=== PATIENT | female | born 1965 | race Caucasian/White ===

== ENCOUNTER → 2017-02-09 | Outpatient (CLI) | payer OTHER ==
--- NOTE | 2017-02-09 11:32 | REP ---
MRI LUMBAR SPINE WITHOUT CONTRAST FOLLOWED BY WITH CONTRAST: HISTORY: Lumbar spondylosis. Low back pain radiating to both lower extremities. TECHNIQUE: Sagittal and axial T1 and T2-weighted scans are acquired in the usual fashion with and without fat saturation. Sequences include spin echo, turbo spin-echo, and STIR imaging sequences. 20 mL of intravenous ProHance is administered. MRI FINDINGS: There is a hemangioma in the L2 vertebral body measuring 2.1 cm in greatest diameter. Cortical and medullary bone signal intensity are otherwise normal. There is some straightening of the normal lumbar lordosis. Lumbar vertebral body heights are preserved. Conus medullaris is normal in position and appearance at T12. No extra vertebral abnormality is observed. Normal caliber aorta. There are degenerative disc changes at L3-4, L4-5, and L5 S1 with disc space narrowing and decreased disc space signal intensity. Axial and sagittal images at L3-4 demonstrate minimal diffuse disc bulging. No central canal stenosis or disc herniation is seen. No neural foraminal encroachment is appreciated. At L4-L5, there is diffuse moderate disc bulging. Canal size is borderline. There is some facet hypertrophy and mild ligamentum flavum hypertrophy. The mid sagittal AP dimension of the thecal sac is 10 mm. No neural foraminal encroachment is seen. At L5-S1, there is facet hypertrophy bilaterally. Mild diffuse disc bulging is seen. There is mild left-sided neural foraminal encroachment due to disc bulging associated spurring and facet hypertrophy. No central canal stenosis is seen. Post-gadolinium enhanced images show no significant or abnormal gadolinium enhancement. There is some enhancement along the margin of the L4-5 disc bulging. IMPRESSION: Degenerative spondylosis changes L3-4, L4-5, L5-S1. Left-sided neural foraminal narrowing at L5-S1, mild central canal narrowing L4-5. Signed by Irving Diego MD 02/09/2017 01:12 P
== END ==
LOC: M PLARAD 07:33
PROVIDERS: ATTEND Physical Medicine & Rehabilitation
DX: M47.816 Spondylosis without myelopathy or radiculopathy, lumbar region (principal)

== ENCOUNTER → 2018-05-07 | Outpatient (CLI) | payer OTHER ==
--- NOTE | 2018-05-07 11:24 | REP ---
MR LUMBAR SPINE WITHOUT CONTRAST: HISTORY: Degenerative disc disease. CONTRAST: ProHance 20 mL. COMPARISON: 02/09/2017 Decreased signal intensity on T2-weighted images is present in the L3-4 through L5-S1 intervertebral discs. The discs are decreased in height. These findings are consistent with disc degeneration. There is no disc bulge or herniation at the L1-2 and L2-3 levels. The nerves exit the neural foramina without compression. A diffuse disc bulge is present at the L3-4 level. There is an increase in the amount of epidural fat. There is mild compression of the thecal sac. There is hypertrophy of the posterior articulating facets. The L3 nerves exit the neural foramina without compression. A diffuse disc bulge is present at the L4-5 level. There is an increase in the amount of epidural fat. There is hypertrophy of the ligamenta flava and posterior articulating facets. There is moderate compression of the thecal sac. The L4 nerves exit the neural foramina without compression. A diffuse disc bulge is present at the L5-S1 level. There is no thecal sac compression. There is hypertrophy of the posterior articulating facets. There is compression of the L5 nerves in the neural foramina. The conus medullaris is normal in appearance, terminating at the level of the T12-L1 intervertebral disc. A hemangioma is present in the L2 vertebral body. Increased signal intensity on T2-weighted images is present in the endplates of the L5 and S1 vertebral bodies. This represents degenerative change. IMPRESSION: 1. Diffuse disc bulge and epidural lipomatosis at the L3-4 level with mild thecal sac compression. 2. Moderate central canal stenosis at the L4-5 level secondary to disc bulge, ligamentous and facet hypertrophy and epidural lipomatosis. The canal stenosis is a new finding. 3. Diffuse disc bulge at the L5-S1 level without thecal sac compression. There is compression of the L5 nerves in the neural foramina. There is no other significant change. Electronically Signed by Real Clements MD 05/07/2018 11:31 A
== END ==
LOC: M PLARAD 07:34
PROVIDERS: ATTEND Physical Medicine & Rehabilitation
DX: M51.06 Intervertebral disc disorders with myelopathy, lumbar region (principal); M48.061 Spinal stenosis, lumbar region without neurogenic claudication; M51.27 Other intervertebral disc displacement, lumbosacral region

== ENCOUNTER 2023-10-02 23:07 | Inpatient (IN) | payer BC ==
[~2023-10-02] VITALS: Ht 175.3 cm; Wt 130.0 kg
[2023-10-03] MEDS: ONDANSETRON 4MG 2ML VIAL IV ONE (01:07)
[2023-10-03] MEDS: MORPHINE 4 MG/ML 1ML VIAL IV ONE ×2 (01:07→02:39)
[2023-10-03 01:08] LABS: BASO # 0.1 10^3/uL (0.0-0.2); BASO % 0.7 % (0.0-1.0); EOS # 0.1 10^3/uL (0.0-0.5); HEMATOCRIT 32.8 % (36.0-47.0); HEMOGLOBIN 11.2 g/dl (12.0-15.5); LYMPH # 2.8 10^3/uL (1.5-5.0); LYMPH % 32.1 % (24.0-44.0); MEAN CORPUSCULAR HEMOGLOBIN 30.5 pg (27.0-33.0); MEAN CORPUSCULAR HGB CONC 34.1 g/dl (32.0-36.5); MEAN CORPUSCULAR VOLUME 89.4 fl (80.0-96.0); MONO # 0.9 10^3/uL (0.0-0.8); MONO % 10.5 % (2.0-8.0); NEUTROPHILS # 4.8 10^3/uL (1.5-8.5); NEUTROPHILS % 55.2 % (36.0-66.0); PLATELET COUNT, AUTOMATED 210 10^3/uL (150-450); RED BLOOD COUNT 3.67 10^6/uL (4.00-5.40); WHITE BLOOD COUNT 8.7 10^3/uL (4.0-10.0)
[2023-10-03 01:33] LABS: BLOOD UREA NITROGEN 20 MG/DL (9-23); CALCIUM LEVEL 8.8 MG/DL (8.5-10.1); CARBON DIOXIDE LEVEL 26 MMOL/L (20-31); CHLORIDE LEVEL 98 MMOL/L (98-107); CREATININE FOR GFR 0.95 MG/DL (0.55-1.30); GLOMERULAR FILTRATION RATE > 60.0 (>51); GLUCOSE, FASTING 157 MG/DL (60-100); POTASSIUM SERUM 3.5 MMOL/L (3.5-5.1); SODIUM LEVEL 131 MMOL/L (136-145)
[2023-10-03] MEDS ORDERED: MOM 30ML SUSPENSION UDC PO PRN (05:35)
[2023-10-03] MEDS: NS 1,000 ML IV ONE (05:40)
[2023-10-03] MEDS: MORPHINE 4 MG/ML 1ML VIAL IV PRN (06:05)
[2023-10-03] MEDS ORDERED: LEXA1TAB PO (06:29)
[2023-10-03] MEDS ORDERED: ROSU10TA61 PO (06:29)
[2023-10-03] MEDS ORDERED: TRIA37.5 PO (06:29)
[2023-10-03] MEDS ORDERED: LEVOTAB10 PO (06:29)
[2023-10-03] MEDS ORDERED: ADVA115A INH (06:29)
[2023-10-03] MEDS ORDERED: ALBU8.5H INH (06:29)
[2023-10-03] MEDS ORDERED: MONT10TA97 PO (06:29)
[2023-10-03] MEDS ORDERED: LEVO150T7 PO (06:29)
[2023-10-03] MEDS ORDERED: POTA1TAB23 PO (06:29)
[2023-10-03 06:31] LABS: BASO # 0.1 10^3/uL (0.0-0.2); EOS # 0.1 10^3/uL (0.0-0.5); EOS % 1.5 % (0.0-3.0); HEMOGLOBIN 9.3 g/dl (12.0-15.5); LYMPH % 31.9 % (24.0-44.0); MEAN CORPUSCULAR HEMOGLOBIN 30.6 pg (27.0-33.0); MEAN CORPUSCULAR HGB CONC 34.4 g/dl (32.0-36.5); MEAN CORPUSCULAR VOLUME 88.8 fl (80.0-96.0); MONO # 0.8 10^3/uL (0.0-0.8); MONO % 12.3 % (2.0-8.0); NEUTROPHILS # 3.2 10^3/uL (1.5-8.5); PLATELET COUNT, AUTOMATED 170 10^3/uL (150-450); RED BLOOD COUNT 3.04 10^6/uL (4.00-5.40); WHITE BLOOD COUNT 6.1 10^3/uL (4.0-10.0)
[2023-10-03] MEDS ORDERED: ERGO500029 PO (06:35)
[2023-10-03] MEDS ORDERED: PANT40TA29 PO (06:35)
[2023-10-03] MEDS ORDERED: METO50TA7 PO (06:35)
[2023-10-03] MEDS ORDERED: IRBE75TA11 PO (06:35)
[2023-10-03] MEDS ORDERED: MUCI1TAB16 PO ×2 (06:38)
[2023-10-03] MEDS ORDERED: HOME MED LIST COMPLETE! XX SCH (06:40)
[2023-10-03] MEDS ORDERED: guaiFENesin ER TABLET 600 MG TAB PO PRN (08:25)
[2023-10-03] MEDS ORDERED: ALBUTEROL 90 MCG/ACT 8GM HFA INHALER INH PRN (08:25)
[2023-10-03] MEDS: guaiFENesin ER TABLET 600 MG TAB PO SCH (08:51)
[2023-10-03] MEDS: VITAMIN D 50,000 UNITS CAPSULE (ERGOCALCIFEROL 1.25MG) PO SCH (09:00)
[2023-10-03 09:52] LABS: HEMATOCRIT 31.6 % (36.0-47.0); HEMOGLOBIN 10.8 g/dl (12.0-15.5)
[2023-10-03] MEDS: LEVOTHYROXINE 150MCG TABLET (0.15MG) PO SCH (10:12)
[2023-10-03] MEDS: ONDANSETRON 4MG ORAL DISINTEGRATING TAB PO PRN (11:04)
[2023-10-03] MEDS: ADVAIR HFA 115/21MCG INHALER INH SCH (11:26)
[2023-10-03] MEDS: ACETAMINOPHEN TAB 650MG DOSE (2X325MG) PO PRN (11:47)
[2023-10-03] MEDS: PANTOPRAZOLE 40MG TAB (PROTONIX) PO SCH (11:47)
[2023-10-03] MEDS: MONTELUKAST 10 MG TAB PO SCH (11:47)
[2023-10-03 12:28] LABS: HEMATOCRIT 30.3 % (36.0-47.0); HEMOGLOBIN 10.2 g/dl (12.0-15.5)
[2023-10-03 15:29] VITALS: BP 144/83; TEMP 98.2; O2SAT 95
[2023-10-03 20:57] VITALS: BP 148/99; TEMP 97.7; O2SAT 94
[2023-10-03] MEDS: ROSUVASTATIN 10 MG TAB (CRESTOR) PO SCH (21:54)
[2023-10-04 04:00] VITALS: BP 162/82; TEMP 97.5; O2SAT 94
[2023-10-04 07:19] LABS: HEMATOCRIT 29.5 % (36.0-47.0); MEAN CORPUSCULAR HEMOGLOBIN 30.9 pg (27.0-33.0); MEAN CORPUSCULAR HGB CONC 33.9 g/dl (32.0-36.5); PLATELET COUNT, AUTOMATED 181 10^3/uL (150-450); RED BLOOD COUNT 3.24 10^6/uL (4.00-5.40); WHITE BLOOD COUNT 5.3 10^3/uL (4.0-10.0)
[2023-10-04] MEDS ORDERED: oxyCODONE 5MG TAB PO PRN (07:45)
[2023-10-04 08:08] VITALS: BP 148/71; TEMP 97; O2SAT 97
[2023-10-04] MEDS: oxyCODONE 5MG TAB PO PRN (08:13)
[2023-10-04 08:15] VITALS: BP 147/81
== END 2023-10-04 11:43 | disposition home or self-care (01) | DRG 384 ==
LOC: M ED 23:07 → M ED INP 10-03 05:32 → M MSPAV 10-03 15:05
PROVIDERS: ADMIT Internal Medicine; ATTEND Student in an Organized Health Care Education/Training Program
DX: S70.02XA Contusion of left hip, initial encounter (principal); I48.91 Unspecified atrial fibrillation; I10 Essential (primary) hypertension; E78.5 Hyperlipidemia, unspecified; E03.9 Hypothyroidism, unspecified; F32.A Depression, unspecified; K21.9 Gastro-esophageal reflux disease without esophagitis; J44.9 Chronic obstructive pulmonary disease, unspecified; N83.202 Unspecified ovarian cyst, left side; G47.33 Obstructive sleep apnea (adult) (pediatric); E56.9 Vitamin deficiency, unspecified; Z87.891 Personal history of nicotine dependence; Z79.899 Other long term (current) drug therapy; W19.XXXA Unspecified fall, initial encounter; Y92.9 Unspecified place or not applicable; Y93.9 Activity, unspecified; Z79.890 Hormone replacement therapy

== ENCOUNTER → 2024-03-02 | Outpatient (CLI) | payer MEDICARE, BC ==
[~2024-03-02] MED LIST: ADVA115A INH; ALBU8.5H INH; ERGO500029 PO; IRBE75TA11 PO; ISOVUE-300 61% 100ML VIAL As Ordered ONE; LEVO150T7 PO; LEVOTAB10 PO; LEXA1TAB PO; LIDOCAINE 1% MDV 20ML VIAL As Ordered ONE; METO50TA7 PO; MONT10TA97 PO; MUCI1TAB16 PO; PANT40TA29 PO; POTA1TAB23 PO; ROSU10TA61 PO; TRIA37.5 PO; methylPREDNISolone 80MG/ML SUSP 1ML VIAL As Ordered ONE
== END ==
LOC: M RAD 11:00
PROVIDERS: ATTEND Physician Assistant Surgical
DX: M16.12 Unilateral primary osteoarthritis, left hip (principal); M25.552 Pain in left hip; T14.8XXA Other injury of unspecified body region, initial encounter
CPT/HCPCS: 20610; 77002; J1010; Q9967